=== PATIENT | female | born 1965 | race Caucasian/White ===

== ENCOUNTER 2024-05-31 12:18 | Outpatient (CLI) | payer OTHER | END 2024-05-31 12:19 | disposition home or self-care (01) | LOC: CSHMAMMO 12:18 | PROVIDERS: ATTEND Family Medicine | DX: Z12.31 Encounter for screening mammogram for malignant neoplasm of breast (principal); Z80.3 Family history of malignant neoplasm of breast | CPT/HCPCS: 77063; 77067 ==

== ENCOUNTER 2024-06-18 15:21 | Outpatient (CLI) | payer OTHER | END 2024-06-18 15:22 | disposition home or self-care (01) | LOC: CSHMAMMO 15:21 | PROVIDERS: ATTEND Family Medicine | DX: M85.89 Other specified disorders of bone density and structure, multiple sites (principal) | CPT/HCPCS: 77080 ==